=== PATIENT | female | born 1950 | race Caucasian/White ===

== ENCOUNTER 2017-04-05 11:50 | Emergency (ER) | payer MEDICARE ==
[~2017-04-05 11:50] MED LIST: ATEN50TA7 PO; CALC1CAP26 PO; CLON0.5T62 PO; FLEETS PO; LEVO137T24 PO; LOVA40TA PO; OMEG1CAP25 PO; PROZ20 PO; VITAMIN B100 COMPLEX PO; [UNRECOGNIZED DRUG - CODE] PO
[2017-04-05 11:53] VITALS: BP 154/78; PULSE 76; RESP 18; O2SAT 99
--- NOTE | 2017-04-05 11:54 | ED.REPORT ---
HPI-Chest Pain 40 and Over Date of Service Apr 05, 2017 ED Provider: Dr. Horta Pt is a 66 year old female with a history of HTN, DM and hypothyroidism, who presents to the ED with concerns of right sided chest pain, localized under her right breast starting last night. She reports that she had an episode like this several weeks ago, with a negative ultrasound, She was told by her PCP that if the pain became worse, she was to come in to the ED. The pain has never completely subsided, and reports that the pain worsened last night. She states that the pain is sharp and remains in her right chest, radiating around her ribs to her back. The pain is worse with movement. She reports that she is a former smoker, and that she has a family hx of early CAD. She reports no hx of liver disease, kidney problems, lung disease or any other past medical hx. Pt states that she had a cholecystectomy in the past, and reports RUQ pain, feeling similar to when she had her gallbladder removed. She denies any shortness of breath, diaphoresis or any other symptoms. Nursing Notes Stated Complaint: CHEST PAIN Chief Complaint: Chest Pain Nursing Notes Reviewed: Yes Allergies: Coded Allergies: aspirin (Verified Allergy, Severe, Mouth/Tongue Swells, 04/05/17) codeine (Verified Allergy, Severe, MOUTH/TONGUE SWELLING, 04/05/17) Scheduled ([Vitamin B100 Complex]) 1 CAP PO DAILY Atenolol-Expunged Drug, Do Not Renew! (Atenolol-Expunged Drug, Do Not Renew!) 50 Mg Tablet 25 MG PO DAILY CHOLECALCIFEROL-Expunged Drug, Do Not Renew! (VITAMIN D3-Expunged Drug, Do Not Renew!) 1,000 Unit Tablet 1,000 UNIT PO DAILY Yannick Carb/Vitamin D3-Expunged, Do Not Renew! (CALCIUM 600/VIT D-Expunged, Do Not Renew!) 1 Each Capsule 1 EACH PO DAILY FLUoxetine-Expunged Drug, Do not Renew! (Prozac-Expunged Drug, Do not Renew!) 20 Mg Cap 40 MG PO AM Levothyroxine-Expunged Drug, Do Not Renew! (Levoxyl-Expunged Drug, Do Not Renew! ) 137 Mcg Tablet 100 MCG PO AM Lovastatin-Expunged Drug, Do Not Renew! (Lovastatin-Expunged Drug, Do Not Renew! ) 40 Mg Tablet 40 MG PO DAILY Fowler-3 Fatty Acids/Fish Oil-Expunged, Do Not (Fowler 3 Fish Oil-Expunged, Do Not Renew!) 1 Cap.ec Capsule.dr Buenrostro CAP.EC PO DAILY Sod Phosphate/Sod Biphosphate (Fleets Phospho-Soda Oral Soln 45 mL) 45 Ml Soln 45 ML PO DAILY clonazePAM-Expunged Drug, Do Not Renew! (clonazePAM-Expunged Drug, Do Not Renew! ) 0.5 Mg Tablet 0.5 MG PO PRN General Time Seen by MD: 11:54 Chief Complaint Chest pain Hx Obtained From: Patient Arrived By: Walk-in Sudden in Onset?: No Onset Occurred: More than a week ago... 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 Reports: Cholecystectomy Family History Reports: Coronary artery disease (Early) Smoking History Former Smoker Ambulatory Status Independent Review of Systems Constitutional: Denies: Chills, Fever, Malaise, Weakness - generalized Respiratory: Denies: Shortness of breath, Wheezing Cardiovascular: Reports: Chest pain, Denies: Syncope GI: Denies: Abdominal pain, Constipation, Diarrhea, Nausea, Vomiting Musculoskeletal: Denies: Back pain, Neck pain Skin: Denies Diaphoresis, Denies Itching Neurologic: Denies: Change LOC, Dizziness, Headache, Syncope, Weakness Complete sys rev & neg: except as marked. Physical Exam Initial Vital Signs Vital Signs (First) Date Time Temp Pulse Resp B/P Pulse Ox O2 Delivery O2 Flow Rate FiO2 04/05/17 11:53 37.2 76 18 154/78 99 Room Air Head / Eyes: Atraumatic, Normocephalic, PERRL ENT: Mucous membranes moist, Conjunctiva normal, No scleral icterus Neck: Supple, Non-tender, Full range of motion Skin: Warm, Dry, No cyanosis Neurologic: Alert, Oriented, Nonfocal General/Constitutional: Awake, Alert, Well appearing, Well developed, Well nourished, Cooperative Respiratory / Chest: Atraumatic, Breath sounds NL, Breath sounds = bilat, No respiratory distress Cardiovascular: Heart rate NL, Regular rhythm, No gallop, No murmurs, No rubs No peripheral edema Abdomen: Atraumatic, Soft, No guarding, No palpable mass Tenderness/Guarding/Rebound: Positive: Tender RUQ... (Moderate) Interpretation & Diagnostics Lab Results Interpretation Result Diagram: 04/05/17 1204 04/05/17 1204 Test 04/05/17 12:04 White Blood Count 13.2th/mm3 (3.8-10.1) Red Blood Count 4.32mil/mm3 (3.90-5.20) Hemoglobin 12.6g/dL (12.0-15.6) Hematocrit 38.9% (35.0-46.0) Mean Corpuscular Volume 90.0fL (81-100) Mean Corpuscular Hemoglobin 29.2pg (27.0-35.0) Mean Corpuscular Hemoglobin Concent 32.4% (32.0-37.0) Red Cell Distribution Width 14.0% (12.3-15.4) Platelet Count 253bil/L (150-400) Neutrophils (%) (Auto) 72.5% (40-74) Lymphocytes (%) (Auto) 16.8% (14-46) Monocytes (%) (Auto) 6.9% (4-12) Eosinophils (%) (Auto) 3.0% (0-5) Basophils (%) (Auto) 0.2% (0-3) D-Dimer < 0.50mg/L FEU (<0.50) Sodium Level 138mEq/L (134-144) Potassium Level 4.5mEq/L (3.5-5.2) Chloride Level 96mEq/L (97-108) Carbon Dioxide Level 23mmol/L (18-29) Blood Urea Nitrogen 16mg/dL (8-27) Creatinine 0.77mg/dL (0.57-1.00) Estimat Glomerular Filtration Rate 107mL/min (>59) Glucose Level 159mg/dL (60-99) Calcium Level 9.8mg/dL (8.5-10.1) Magnesium Level 1.8mg/dL (1.6-2.6) Total Bilirubin 0.4mg/dL (0.0-1.2) Aspartate Amino Transf (AST/SGOT) 15U/L (0-50) Alanine Aminotransferase (ALT/SGPT) 17U/L (0-32) Alkaline Phosphatase 161U/L (25-165) Troponin T 0.010ug/L (0.0-0.011) Total Protein 7.3g/dL (6.4-8.4) Albumin 4.3g/dL (3.4-5.0) Lipase 81U/L (13-60) Hold Jimenez Top Tube Received (Received) ECG Interpretation ECG Interpretation: SR - 72 Time: 12:00 Interpreted by: ED physician Normal ECG Interpretation: Normal axis, Normal intervals X-Ray Chest Interpretation Chest Xray Interpretation: IMPRESSION: No radiographic evidence of acute cardiopulmonary pathology. Dictated by: Raphael Grace M.D. on 04/05/2017 at 12:39 Interpretation / Wet Read by: Interpret - Radiologist Re-Eval/Medical Decision Source of Hx: Old records Time of Eval: 13:14 Re-Evaluation/Progress Note: Pt is rechecked, she reports that he pain has subsided. She is informed of her labs and imaging results and the plan to wait on several test results. She understands and agrees, all questions are addressed. Counseled Regarding: Diagnosis, Lab results, Need for follow-up, When/why to return to ED Discharge & Departure Primary Impression: Abdominal pain Abdominal location: right upper quadrant Qualified Code: R10.11 - Right upper quadrant pain Disposition: Home Discharge Condition All VS Reviewed: Yes Condition: Stable Patient Instructions: Abdominal Pain (ED) Additional Instructions: Your labs and imaging were reassuring today. You do have a mild elevation in the lipase which is a pancreatic enzyme. I suggest you follow up with your primary care provider for a further work up of this continued abdominal pain. For pain management, I have provided you with hydrocodone/APAP. NOTE: This is a narcotic pain medication, use sparingly. Do not drink alcohol or drive while you are taking this medication. Return to the emergency department with any worsening abdominal pain, intractable vomiting, fever or any other symptoms that concern you. Return to the ER if you develop pain that is not controllable with the provided pain medication or antinausea medication or if you develop jaundice or fever in association with the abdominal pain. Until you follow up with your provider or recommended he abstain from alcohol and eat a very very low fat diet. Referrals: Humberto Rios (PCP) Bryan Attestation Portions of this note were transcribed by Ellyn Costa. I, Dr. Horta personally performed the history, physical exam and medical decision-making; I reviewed and confirmed the accuracy of the information in the transcribed note. Signed by: Bryan Solano, 04/05/2017 15:14 copies to: Humberto Rios Kirk H MD Apr 05, 2017 11:54 MAX COSTA Apr 05, 2017 12:00
[2017-04-05] MEDS ORDERED: Ondansetron 2 mg/mL 2 mL Inj IVPUSH PRN (12:05)
[2017-04-05] MEDS ORDERED: HYDROmorphone 0.5 mg/0.5 mL iSecure Syringe IVPUSH PRN (12:05)
[2017-04-05 12:19] LABS: BASOPHILS % (AUTO) 0.2 % (0-3); MONOCYTES % (AUTO) 6.9 % (4-12); Mean Corpuscular Hemoglobin 29.2 pg (27.0-35.0); NEUTROPHILS % (AUTO) 72.5 % (40-74); Platelet Count 253 bil/L (150-400)
--- NOTE | 2017-04-05 12:42 | DRSVH ---
PROCEDURE: X-RAY CHEST ONE VIEW, PORTABLE ([id number]) INDICATIONS: CHEST PAIN TECHNIQUE: One view of the chest was acquired. COMPARISON: None. FINDINGS: Surgical changes and devices: Cervical spine postoperative change. Lungs and pleura: No pleural effusions or pneumothorax. Lungs are clear. Mediastinum: Mediastinal contours appear normal. Heart size is normal. Bones and chest wall: No suspicious bony lesions. Overlying soft tissues appear unremarkable. IMPRESSION: No radiographic evidence of acute cardiopulmonary pathology. Dictated by: Raphael Grace M.D. on 04/05/2017 at 12:39 Approved by: Raphael Grace M.D. on 04/05/2017 at 12:40
[2017-04-05 13:02] VITALS: BP 130/69; PULSE 69; RESP 16; O2SAT 94
[2017-04-05 13:02] LABS: TROPONIN T 0.01 ug/L (0.0-0.011)
[2017-04-05 13:14] LABS: Magnesium 1.8 mg/dL (1.6-2.6)
[2017-04-05] MEDS ORDERED: ONDA4TAB9 PO (13:28)
[2017-04-05] MEDS ORDERED: HYDR-4003 PO (13:28)
[2017-04-05 13:49] VITALS: BP 144/61; PULSE 74; RESP 22; O2SAT 93
== END 2017-04-05 13:47 | disposition home or self-care (01) ==
LOC: SED 11:50
DX: R10.11 Right upper quadrant pain (principal); E03.9 Hypothyroidism, unspecified; E11.9 Type 2 diabetes mellitus without complications; I10 Essential (primary) hypertension; Z87.891 Personal history of nicotine dependence; Z88.6 Allergy status to analgesic agent; Z88.5 Allergy status to narcotic agent